=== PATIENT | male | born 1965 | race Caucasian/White ===

== ENCOUNTER 2016-12-15 08:40 | Inpatient (IN) ==
[2016-12-15] MEDS ORDERED: Aspirin 81 MG TAB.CHEW PO STA (08:46)
[2016-12-15] MEDS ORDERED: Nitroglycerin 0.4 MG TAB.SUBL SL PRN (08:49)
[2016-12-15 08:59] LABS: Basophils % 0.4 %; Eosinophils # 0.2 K/mcL (0.0-0.6); Eosinophils % 2.2 %; Hematocrit 34.1 % (37.5-50.1); Hemoglobin 11.3 g/dL (12.9-16.9); Immature Granulocytes % 0.3 % (0-4); Lymphocytes # 1.5 K/mcL (0.6-4.6); Lymphocytes % 19.9 %; Mean Corpuscular HGB Conc 33.1 g/dL (31.6-35.5); Mean Corpuscular Hemoglobin 30.6 pg (28.0-33.3); Mean Corpuscular Volume 92.4 fL (83.0-100.0); Mean Platelet Volume 9.8 fL (9.4-12.4); Monocytes # 0.7 K/mcL (0.0-1.3); Monocytes % 8.6 %; Neutrophils # 5.2 K/mcL (1.6-8.9); Platelet Count 171 K/mcL (140-400); Red Blood Count 3.69 M/mcL (4.19-5.50); Red Cell Distribution Width 13.2 % (11.5-14.5); Segmented Neutrophils % 68.6 %
[2016-12-15 09:05] LABS: INR 1.2; Prothrombin Time 12.6 Seconds (9.4-12.1)
[2016-12-15 09:08] LABS: Activated Partial Thrombo Time 32.3 Seconds (26.0-36.0)
[2016-12-15 09:12] LABS: Calcium 9.4 mg/dL (8.6-10.8); Potassium 4.5 mEq/L (3.5-4.5)
--- NOTE | 2016-12-15 09:17 | Emergency Department Note ---
Disposition Clinical Impression: Chest pain Qualifiers: Chest pain type: unspecified Qualified Code(s): R07.9 - Chest pain, unspecified Disposition: Admitted As Inpatient Condition: Good Referrals: Estrada Mueller MD [Primary Care Provider] - Forms: ED Satisfaction Letter Time of Disposition: 10:03 Chest Pain HPI - General Chief Complaint: ED Chest Pain Stated Complaint: Chest Pain Time Seen by Provider: 12/15/16 08:42 Source: patient Mode of arrival: ambulatory Limitations: no limitations Vital Signs Reviewed: Yes Nursing Notes Reviewed: Yes - History of Present Illness HPI Narrative: Patient is a 51-year-old male with past medical history of previous cardiac stenting, previous ID, hypertension, ESRD. He presents today due to abnormal EKG and chest pain prior to stress test that was scheduled today. Patient states that he has had chronic chest pain on and off. Today, he woke up with chest pain is left-sided, described as a tightness, he is unable to rate it on a scale 1-10 but states that it feels like a dull toothache. Does not worsen with exertion. Denies any shortness of breath, nausea, vomiting, fevers, diarrhea, abdominal pain, urinary symptoms. He has not taken any nitroglycerin or aspirin today. Severity scale (1-10): 0 - Related Data Home Medications Medication Instructions Recorded Confirmed Amlodipine Besylate 10 mg PO DAILY 12/15/16 12/15/16 Aspirin 81 mg PO DAILY 12/15/16 12/15/16 Carvedilol [Coreg] 25 mg PO BID 12/15/16 12/15/16 Clopidogrel [Plavix] 75 mg PO DAILY 12/15/16 12/15/16 Cyclobenzaprine [Flexeril] 10 mg PO HS 12/15/16 12/15/16 Lisinopril [Zestril] 40 mg PO DAILY 12/15/16 12/15/16 Nitroglycerin [Nitrostat] 0.4 mg SL AD PRN 12/15/16 12/15/16 Omeprazole [PriLOSEC] 20 mg PO DAILY 12/15/16 12/15/16 Ranitidine HCl [Zantac] 300 mg PO HS 12/15/16 12/15/16 Sevelamer [Renvela] 800 mg PO TIDWM 12/15/16 12/15/16 Simvastatin [Zocor] 20 mg PO HS 12/15/16 12/15/16 Tramadol HCl [Ultram] 50 mg PO Q6H PRN 12/15/16 12/15/16 Allergies Allergy/AdvReac Type Severity Reaction Status Date / Time No Known Allergies Allergy Verified 10/18/16 08:49 Constitutional: Denies: fever Cardiovascular: Reports: chest pain. Denies: palpitations Respiratory: Denies: cough, dyspnea, wheezes Gastrointestinal: Denies: abdominal pain, nausea, vomiting, diarrhea Musculoskeletal: Denies: back pain Integumentary: Denies: rash Chest Pain PMH - Past Medical History Medical history: Reports: DVT, GERD, hypertension, myocardial infarction, renal disease, other Psychiatric history: Reports: no psych history - Social History Smoking Status: Current every day smoker Alcohol use: Reports: none Drug use: Reports: none Physical Exam - General Limitations: no limitations General appearance: alert, in no apparent distress - Head Head exam: atraumatic, normocephalic, normal inspection - Eye Eye exam: Present: normal appearance, PERRL, EOMI - ENT ENT exam: normal exam, normal oropharynx, mucous membranes moist - Neck Neck exam: Present: normal inspection, full ROM, trachea midline - Chest Chest inspection: Present: normal inspection, symmetric chest wall rise - Respiratory Respiratory exam: Present: normal lung sounds bilaterally. Absent: respiratory distress, wheezes, stridor - Cardiovascular Cardiovascular exam: Present: regular rate, normal rhythm, normal heart sounds - Abdominal Exam Abdominal exam: Present: soft, Non-Tender. Absent: tenderness, distention, guarding, rebound, rigidity - Extremities Exam Extremities exam: Present: normal inspection, full ROM. Absent: tenderness, pedal edema - Neurological Exam Neurological exam: Present: alert, oriented X3 - Psychiatric Psychiatric exam: Present: normal affect, normal mood - Skin Skin exam: Present: warm, dry, intact, normal color Course Course Narrative: Patient BP was 192/90. The rest of his vitals were within normal limits. EKG shows sinus rhythm with hyperacute T waves. , mild elevation in V1, V2 present on old EKG in 08/02/2013. Lungs clear to auscultation. Heart regular rate and rhythm. Abdominal exam benign. CBC shows normal white blood cell count. Mildly anemic. Creatinine consistent with end-stage renal disease. Troponin 0.08. Patient is having active chest pain. We will start nitro drip and then admit to hospitalist. Chest x-ray shows mild pulmonary venous congestion but no overt edema. No other acute cardio pulmonary processes. 09:37 and spoke with the patient about admission. He was agreeable to admission. was concerned about starting heparin. We discussed that this was standard treatment for ACS. She is concerned about bleeding. This was discussed at length and patient was agreeable with starting heparin at this time. Dr. Gar consulted and was agreeable with starting him on heparin. Chest X-Ray 12/15/16 08:45 IMPRESSION: Pulmonary venous congestion without overt pulmonary edema. No acute abnormality of the chest otherwise. D/ / Flakito Keating MD / Flakito Keating MD Interpreting Provider: Flakito Keating MD Vital Signs Temperature 98.9 F 12/15/16 08:41 Pulse Rate 71 12/15/16 08:41 Respiratory Rate 16 12/15/16 08:41 Blood Pressure 192/99 12/15/16 08:41 O2 Sat by Pulse Oximetry 97 12/15/16 08:41 Temperature 98.9 F 12/15/16 08:41 Pulse Rate 68 12/15/16 10:14 Respiratory Rate 18 12/15/16 10:14 Blood Pressure 147/85 12/15/16 10:14 O2 Sat by Pulse Oximetry 98 12/15/16 10:14 Oxygen Delivery Oxygen Delivery Room Air Chest Pain - [facility] Narrative Medical decision making narrative: Patient BP was 192/90. The rest of his vitals were within normal limits. EKG shows sinus rhythm with hyperacute T waves. , mild elevation in V1, V2 present on old EKG in 08/02/2013. Lungs clear to auscultation. Heart regular rate and rhythm. Abdominal exam benign. CBC shows normal white blood cell count. Mildly anemic. Creatinine consistent with end-stage renal disease. Troponin 0.08. Patient is having active chest pain. We will start nitro drip and then admit to hospitalist. Chest x-ray shows mild pulmonary venous congestion but no overt edema. No other acute cardio pulmonary processes. 09:37 and spoke with the patient about admission. He was agreeable to admission. was concerned about starting heparin. We discussed that this was standard treatment for ACS. She is concerned about bleeding. This was discussed at length and patient was agreeable with starting heparin at this time. Dr. Gar consulted and was agreeable with starting him on heparin. - Medical Records Medical records reviewed: Yes I reviewed the patient's medical records. - Lab Data Lab results reviewed: Yes I reviewed the patient's lab results. Result diagrams: 12/15/16 08:52 12/15/16 08:52 Lab Results 12/15/16 12/15/16 12/15/16 Range/Units 08:52 08:52 08:52 WBC 7.6 (4.3-11.1) K/mcL RBC 3.69 L (4.19-5.50) M/mcL Hgb 11.3 L (12.9-16.9) g/dL Hct 34.1 L (37.5-50.1) % MCV 92.4 (83.0-100.0) fL MCH 30.6 (28.0-33.3) pg MCHC 33.1 (31.6-35.5) g/dL RDW 13.2 (11.5-14.5) % Plt Count 171 (140-400) K/mcL MPV 9.8 (9.4-12.4) fL Immature Gran % 0.3 (0-4) % Seg Neutrophils % 68.6 % Lymphocytes % 19.9 % Monocytes % 8.6 % Eosinophils % 2.2 % Basophils % 0.4 % Neutrophils # 5.2 (1.6-8.9) K/mcL Lymphocytes # 1.5 (0.6-4.6) K/mcL Monocytes # 0.7 (0.0-1.3) K/mcL Eosinophils # 0.2 (0.0-0.6) K/mcL Basophils # 0.0 (0.0-0.2) K/mcL PT 12.6 H (9.4-12.1) Seconds INR 1.2 APTT 32.3 (26.0-36.0) Seconds Sodium 138 (136-145) mEq/L Potassium 4.5 (3.5-4.5) mEq/L Chloride 103 (98-109) mEq/L Carbon Dioxide 22 (19-29) mEq/L BUN 27 H (8-26) mg/dL Creatinine 5.44 H (0.72-1.25) mg/dL Est GFR ( Amer) 13 L (> 60) Est GFR (Non-Af Amer) 11 L (> 60) BUN/Creatinine Ratio 5 L (6-26) Glucose 84 (70-99) mg/dL Calculated Osmolality 290 (280-300) Calcium 9.4 (8.6-10.8) mg/dL Troponin I (0-0.03) ng/mL 12/15/16 Range/Units 08:52 WBC (4.3-11.1) K/mcL RBC (4.19-5.50) M/mcL Hgb (12.9-16.9) g/dL Hct (37.5-50.1) % MCV (83.0-100.0) fL MCH (28.0-33.3) pg MCHC (31.6-35.5) g/dL RDW (11.5-14.5) % Plt Count (140-400) K/mcL MPV (9.4-12.4) fL Immature Gran % (0-4) % Seg Neutrophils % % Lymphocytes % % Monocytes % % Eosinophils % % Basophils % % Neutrophils # (1.6-8.9) K/mcL Lymphocytes # (0.6-4.6) K/mcL Monocytes # (0.0-1.3) K/mcL Eosinophils # (0.0-0.6) K/mcL Basophils # (0.0-0.2) K/mcL PT (9.4-12.1) Seconds INR APTT (26.0-36.0) Seconds Sodium (136-145) mEq/L Potassium (3.5-4.5) mEq/L Chloride (98-109) mEq/L Carbon Dioxide (19-29) mEq/L BUN (8-26) mg/dL Creatinine (0.72-1.25) mg/dL Est GFR ( Amer) (> 60) Est GFR (Non-Af Amer) (> 60) BUN/Creatinine Ratio (6-26) Glucose (70-99) mg/dL Calculated Osmolality (280-300) Calcium (8.6-10.8) mg/dL Troponin I 0.08 H* (0-0.03) ng/mL - Radiology Data Radiology results reviewed: Yes I reviewed the patient's radiology results. Chest X-Ray 12/15/16 08:45 IMPRESSION: Pulmonary venous congestion without overt pulmonary edema. No acute abnormality of the chest otherwise. D/ / Flakito Keating MD / Flakito Keating MD Interpreting Provider: lFakito Keating MD - EKG Data EKG attestation: Yes I reviewed and interpreted this EKG. EKG results narrative: EKG shows normal sinus rhythm. Rate 76. DC interval 157. QRS 82. QTC 413. Normal axis. Mild elevation in V1, V2 that is chronic for the patient from previous EKG on 08/02/2013. Heart Score - Score History: Moderately Suspicious EKG: Normal Age: 45-65 Risk Factors: Equal/Greater than 3 risk factor or history of atherosclerotic disease Troponin: Less than normal limit HEART Score Total: 4 S.B.A.R. - S.B.A.R. Situation: Demographics, MOA Background: Presenting Complaint, Relevant PMH, Meds, & Allergies Assessment: Vital Signs, Course and respsone to treatment, Exam Concerns, Patient/Family Expectation, Pertinant Lab Results, Outstanding Labs Recommendation: Barrier(s) to disposition, Recommendation based on pending studies, treatments, or consults S.B.A.R. Report Given to: Dr. Elsie Soto Repor Time: 10:03 Attestation Statement - Attestation Attestation: I examined this patient and my medical decision-making was reviewed with the [employer] MACHINE OPERATOR/PA/Advanced Practice Nurse/Resident Physician. I agree with the documented findings, disposition and treatment plan as described except to the extent set forth below. Patient emergency department with chest pain. He has been having intermittent episodes as an outpatient. He went today for a stress test and they sent him to the emergency department. On examination he is comfortable in no distress. Heart regular rate and rhythm. Plan. Patient with new lateral ST depressions and T-wave inversions. Troponin is positive, but patient is on dialysis. Starting heparin and will admit. 30 minutes of critical care exclusive of separately billable procedures.
[2016-12-15] MEDS ORDERED: *HR* Heparin 5,000 UNIT/ML VIAL IVP ONE (09:24)
[2016-12-15] MEDS ORDERED: *HR* Heparin 5,000 UNIT/ML VIAL IVP PRN ×2 (09:24)
[2016-12-15] MEDS ORDERED: Heparin 25,000 UNIT/500 ML D5W 25,000 UNIT/500 ML MLS IVC SCH (09:30)
[2016-12-15] MEDS ORDERED: Acetaminophen 325 MG TABLET PO PRN (10:31)
[2016-12-15] MEDS ORDERED: *HR* HYDROcodone/Acet 5/325 mg TABLET PO PRN (10:31)
[2016-12-15] MEDS ORDERED: Ondansetron 4 MG/2 ML VIAL IVP PRN (10:31)
[2016-12-15] MEDS ORDERED: Naloxone 0.4 MG/ML INJ IVP PRN (10:31)
[2016-12-15] MEDS ORDERED: *HR* HYDROmorphone (PF) 1 MG/ML SYRINGE IVP PRN (10:31)
[2016-12-15] MEDS ORDERED: Lisinopril 20 MG TABLET PO ONE (11:30)
--- NOTE | 2016-12-15 11:33 | Internal Med History&Physical ---
Date of Encounter: 12/15/16 Time of Encounter: 11:27 Assessment and Plan (1) NSTEMI (non-ST elevated myocardial infarction) Current visit: Yes Status: Acute Continue heparin drip ECHO done 12/08/2016 shows LVEF 50%, severe LV diastolic dysfunction severely dilated LA, Pulm HTN, Moderate-Severe Continue ACEI, BB, ASA, Plavix Follow cardiology consult/recs Nitro prn (2) CAD (coronary artery disease) Current visit: Yes Status: Chronic As above Qualifiers: Coronary Disease-Associated Artery/Lesion type: [place] artery [place] vs. transplanted heart: [place] heart Associated angina: with unstable angina Qualified Code(s): I25.110 - Atherosclerotic heart disease of [place] coronary artery with unstable angina pectoris (3) ESRD (end stage renal disease) Current visit: Yes Status: Chronic Electrolytes acceptable K is normal Consult renal for routine HD MWF (4) HTN (hypertension) Current visit: Yes Status: Chronic Uncontrolled Restart home meds , and titrate prn Qualifiers: Hypertension type: essential hypertension Qualified Code(s): I10 - Essential (primary) hypertension (5) Aortic stenosis Current visit: Yes Status: Chronic Moderate-Severe per ECHO done 11/2016 Patient with known CAD and NSTEMI Cardiology is on board, will follow recommendations Qualifiers: Cardiac valve disease etiology: nonrheumatic Qualified Code(s): I35.0 - Nonrheumatic aortic (valve) stenosis (6) Tobacco dependence Current visit: Yes Status: Acute Tobacco cessation encouraged Patient requesting NRT , ordered Internal Medicine - H&P: HPI Chief complaint: Chest pain, uncontrolled BP, abnormal EKG Admitted From: Home Plans for Post Hospital Care: Home History of present illness: Mr. Bray is a 51 year old male Seen at bedside with his spouse present He reports a PMH of HTN, ESRD, CAD s/p [place] with stents in 2012, Stable angina, Tobacco abuse Patient states that in the past week he has been having chest pain worse with exertion and sometimes at rest. He remembers one time he had very severe chest pain, not relieved by his nitro and when he checked his BP, it was >200 SBP. He has been having annual ECHOcardiograms and Stress tests in preparation for his kidney transplant since he is on the transplant list He has tried thrice to obtain stress test since Monday and was turned back for uncontrolled blood pressure Today he was referred to the ED from stress test due to abnormal EKG with new findings At time of review, he denies ongoing chest pain, dizziness, palpitations, diaphoresis or shortness of breath he has no abdominal , or neurologic complains he is an active smoker, with ~30pack year, smokes 1 PPD On arrival to the ED< his vital signs showed BP 192/99, work up revealed normal CBC and troponin 0.08 (no previous values to compare with. ). EKG showed <1mm St depression in inferior leads, Tall T waves in Leads V2-V4 and new TWI in V5 and V6. CXR with pulmonary vascular congestion without overt pulmonary edema he is admitted to medicine for NSTEMI after due consultation with cardiology Past Med Surg Social Fam HX - Past Medical History Medical history: DVT, GERD, hypertension, myocardial infarction, renal disease, other Psychiatric history: no psych history - Social History Smoking Status: Current every day smoker Smokeless Tobacco Status: No Alcohol use: none Drug use: none Internal Medicine - H&P: Meds Amlodipine Besylate 10 mg PO DAILY 12/15/16 [History] Aspirin 81 mg PO DAILY 12/15/16 [History] Carvedilol [Coreg] 25 mg PO BID 12/15/16 [History] Clopidogrel [Plavix] 75 mg PO DAILY 12/15/16 [History] Cyclobenzaprine [Flexeril] 10 mg PO HS 12/15/16 [History] Lisinopril [Zestril] 40 mg PO DAILY 12/15/16 [History] Nitroglycerin [Nitrostat] 0.4 mg SL AD PRN 12/15/16 [History] Omeprazole [PriLOSEC] 20 mg PO DAILY 12/15/16 [History] Ranitidine HCl [Zantac] 300 mg PO HS 12/15/16 [History] Sevelamer [Renvela] 800 mg PO TIDWM 12/15/16 [History] Simvastatin [Zocor] 20 mg PO HS 12/15/16 [History] Tramadol HCl [Ultram] 50 mg PO Q6H PRN 12/15/16 [History] Allergies No Known Allergies Allergy (Verified 10/18/16 08:49) All Systems PM: A 10-system review of systems was performed and is negative for pertinent findings except as documented above in the HPI. - Constitutional Constitutional: no chills, no fever(s), no night sweats - EENT Eyes: no change in vision, no discharge, no pain, no photophobia Ears: no ear discharge, no ear pain, no tinnitus Nose, mouth and throat: no dysphagia, no nasal discharge, no neck pain, no sore throat - Cardiovascular Cardiovascular ROS IM: as per HPI - Respiratory Respiratory: as per HPI - Gastrointestinal Gastrointestinal: as per HPI - Genitourinary Genitourinary ROS male: as per HPI - Musculoskeletal Musculoskeletal ROS IM: as per HPI - Integumentary Integumentary IM: as per HPI - Neurological Neurological ROS: as per HPI - Psychiatric Psychiatric: as per HPI - Hematologic/Lymphatic Hematologic/Lymphatic: no easy bruising - Constitutional Vitals: Temp Pulse Resp BP Pulse Ox 98.9 F 75 18 140/86 95 12/15/16 08:41 12/15/16 11:14 12/15/16 11:14 12/15/16 11:14 12/15/16 11:14 General appearance: Present: A&O X 3, pleasant, no acute distress - Head Head exam: Present: atraumatic, normocephalic - Eye Eye exam: Present: PERRL, conjuntiva pink, sclera anicteric Pupils: Present: PERRL - Neck Neck exam general surgery: Present: supple, trachea midline. Absent: lymphadenopathy - Respiratory Respiratory exam: Present: CTAB. Absent: accessory muscle use, rales, rhonchi, wheezes - Cardiovascular Cardiovascular exam: Present: RRR, +S1, +S2, systolic murmur ( murmur). Absent: diastolic murmur, gallop, rubs - GI/Abdominal GI/Abdominal exam: Present: normal bowel sounds, soft, no peritoneal signs. Absent: distended, tenderness - Extremities Exam Extremities exam: Present: warm, radial pulses palpable and symetrical. Absent : calf tenderness, cyanotic, pedal edema Additional comments: Left forearm AVF thrill - Neurological Exam Neurological exam: Present: alert, CN II-XII intact, oriented X3, no focal deficits. Absent: pronater drift, facial droop, speech deficit - Skin Skin exam: Present: dry, intact Internal Med - H&P Results - Labs CBC & Chem 7: 12/15/16 08:52 12/15/16 08:52 Labs: Short CBC 12/15/16 Range/Units 08:52 WBC 7.6 (4.3-11.1) K/mcL Hgb 11.3 L (12.9-16.9) g/dL Hct 34.1 L (37.5-50.1) % Plt Count 171 (140-400) K/mcL Neutrophils # 5.2 (1.6-8.9) K/mcL BMP 12/15/16 08:52 Sodium 138 Potassium 4.5 Chloride 103 Carbon Dioxide 22 BUN 27 H Creatinine 5.44 H Glucose 84 Calcium 9.4 Cardiac Enzymes 12/15/16 Range/Units 08:52 Troponin I 0.08 H* (0-0.03) ng/mL - Impressions ITS Impressions Chest X-Ray 12/15/16 08:45 IMPRESSION: Pulmonary venous congestion without overt pulmonary edema. No acute abnormality of the chest otherwise. D/ / Flakito Keating MD / Flakito Keating MD Interpreting Provider: Flakito Keating MD
[2016-12-15] MEDS: amLODIPine 5 MG TABLET PO SCH (11:44)
--- NOTE | 2016-12-15 14:08 | Pre-Sedation Evaluation ---
Pre-sedation evaluation - Pre-sedation checklist Date of procedure: 12/15/16 Procedure: [facility] Recent Vitals: Last Vital Signs Temp 98.9 F 12/15/16 08:41 Pulse 86 12/15/16 13:33 Resp 17 12/15/16 13:33 BP 168/89 12/15/16 13:33 Pulse Ox 92 12/15/16 13:33 H&P (including ROS) documented in medical record: Yes Previous reaction to sedatives/anesthetics: No Dietary Status: NPO after Midnight Airway Assessment: Patient can open mouth completely, TMJ function normal Dentition: No loose teeth or bridges ASA Classification *see protocol: CLASS II-Mild systemic disease Plan of Care: Pt appropriate candidate for procedure/moderate/conscious sedation , Risks/benefits of procedure/sedation discussed w/ patient/family
--- NOTE | 2016-12-15 14:14 | Cardiology Consult Note ---
Date of Encounter: 12/15/16 Time of Encounter: 14:08 Assessment and Plan (1) NSTEMI (non-ST elevated myocardial infarction) Current Visit: Yes Status: Acute Initial troponin 0.08. Trend for total of 3. This is also in setting of ESRD on dialysis with creatinine 5.44 and hypertensive urgency with BP as high as 192/ 99. NSTEMI vs. Demand ischemia. EKG changes noted, specifically in inferior leads--likely secondary to LVH. Current chest pain 2-11/18. Typical symptoms of chest pain worsening with exertion, improving with rest and nitro. Recent echo 11/2016 EF 50% with hypokinesis of basal-mid inferolateral wall. Severe diastolic dysfunction, severely dilated left atrium, moderate-severe . Recommend [facility] for further evaluation. R/B/A discussed. Pt agrees. [facility] today. Currently on heparin gtt, ASA, Plavix, Statin, BB, HAI-I. Continue to follow. (2) Aortic stenosis Current Visit: Yes Status: Chronic Moderate-Severe per echo 11/2016. Moderate by transvalvular gradients (PV 3.49 m/sec, MG 27mmHg), severe by SARAH 0.85 cm2. Will continue to monitor. Possible SARAH as outpt to further evaluate. Qualifiers: Cardiac valve disease etiology: nonrheumatic Qualified Code(s): I35.0 - Nonrheumatic aortic (valve) stenosis (3) CAD (coronary artery disease) Current Visit: Yes Status: Chronic Hx of PCI to mid LAD and prox circ in 2012. ASA, Plavix, Statin, BB, HAI-I. Qualifiers: Coronary Disease-Associated Artery/Lesion type: [place] artery [place] vs. transplanted heart: [place] heart Associated angina: with unstable angina Qualified Code(s): I25.110 - Atherosclerotic heart disease of [place] coronary artery with unstable angina pectoris (4) ESRD (end stage renal disease) Current Visit: Yes Status: Chronic HD on M, W, F. Nephrology consulted. (5) HTN (hypertension) Current Visit: Yes Status: Chronic Uncontrolled, 197/99 on presentation, currently 168/89. Restarted home meds, adjust as necessary. Qualifiers: Hypertension type: essential hypertension Qualified Code(s): I10 - Essential (primary) hypertension (6) Tobacco dependence Current Visit: Yes Status: Acute Tobacco cessation encouraged. Reports smoking 1 PPD, which is reduced compared to prior. Nicotine patches while inpt. Discussion w patient/family: The assessment and plan as outlined above was discussed with the patient and/or family members who expressed understanding and agreement. All questions were answered. Thank you for involving us in the care of your patient. Please call with any questions. I will discuss all the above with Dr. Gar and make changes as necessary. History of Present Illness Consult date: 12/15/16 Requesting physician: Shay Zimmerman Consult reason: NSTEMI Chief complaint: chest pain History of present illness: Mr. Bray is a 51 year old male with PMH of HTN, ESRD on dialysis, CAD s/p CA and PCI to mid LAD and prox circ in 2012, tobacco abuse that presented today to have outpt stress test ordered by PCP. Stress test was cancelled due to EKG changes and active chest pain. In ED troponin found to be 0.08, but in setting of ESRD and hypertensive urgency. Pt reports he has had intermittent chest pain since PCI in 2012, but recently the pain has been worsening and becoming more frequent. It is midsternal and radiates to his neck and shoulder. Worse with activity, improves with rest and nitro but sometimes still does not totally relieve it. Currently chest pain is rated 2-3/10. Reports dyspnea. Denies nausea , vomiting, or diaphoresis. Recent echo 11/2016 EF 50%--hypokinesis of basal-mid inferolateral wall, severe diastolic dysfunction, severely dilated left atrium, severely calcified AV leaflets, moderate-severe . Moderate by transvalvular gradients (PV 3.49 m/sec, MG 27mmHg), severe by SARAH 0.85cm2. Past Med Surg Social Fam HX - Past Medical History Medical history: coronary artery disease, DVT, GERD, hypertension, myocardial infarction, renal disease, valvular heart disease, other Psychiatric history: no psych history - Past Surgical History Surgical History: angioplasty/stent - Social History Smoking Status: Current every day smoker Smokeless Tobacco Status: No Alcohol use: none Drug use: none Medications and Allergies Amlodipine Besylate 10 mg PO DAILY 12/15/16 [History] Aspirin 81 mg PO DAILY 12/15/16 [History] Carvedilol [Coreg] 25 mg PO BID 12/15/16 [History] Clopidogrel [Plavix] 75 mg PO DAILY 12/15/16 [History] Cyclobenzaprine [Flexeril] 10 mg PO HS 12/15/16 [History] Lisinopril [Zestril] 40 mg PO DAILY 12/15/16 [History] Nitroglycerin [Nitrostat] 0.4 mg SL AD PRN 12/15/16 [History] Omeprazole [PriLOSEC] 20 mg PO DAILY 12/15/16 [History] Ranitidine HCl [Zantac] 300 mg PO HS 12/15/16 [History] Sevelamer [Renvela] 800 mg PO TIDWM 12/15/16 [History] Simvastatin [Zocor] 20 mg PO HS 12/15/16 [History] Tramadol HCl [Ultram] 50 mg PO Q6H PRN 12/15/16 [History] Allergies No Known Allergies Allergy (Verified 10/18/16 08:49) All Systems Review: A 10-system review of systems was performed and is negative for pertinent findings except as documented above in the HPI. - Cardiovascular Cardiovascular: as per HPI, chest pain at rest, chest pain with exertion, dyspnea on exertion, radiating jaw, neck or arm pain - Respiratory Respiratory: dyspnea Physical Examination Vital Signs, Last 4 Hours Pulse Resp BP Pulse Ox 12/15/16 13:33 86 17 168/89 92 12/15/16 13:09 18 164/86 Vital Signs Temp Pulse Resp BP Pulse Ox 12/15/16 13:33 86 17 168/89 92 12/15/16 13:09 18 164/86 12/15/16 11:48 71 72 171/87 95 12/15/16 11:14 75 18 140/86 95 12/15/16 10:14 68 18 147/85 98 12/15/16 09:25 84 20 178/95 94 12/15/16 08:41 98.9 F 71 16 192/99 97 Intake and Output 12/14/16 12/15/16 12/15/16 23:59 07:59 15:59 Other: Weight 69.853 kg Patient Weight 12/15/16 23:59 Weight 69.853 kg General: Conversant, No Apparent Distress HEENT: Atraumatic, Normocephaly, Mucus Membranes Moist Neck: No JVD, Normal carotid pulses Cardiac: Reg Rate and Rhythm, Normal S1 and S2, Other (BETSY 2/6) Lungs: Other (diminished) Neuro: Alert and responsive, No focal deficits noted Abdomen: Soft, Non-Tender Skin: No rashes noted on visualized skin Musculoskeletal: No Chest Wall Tenderness Extremities: No Clubbing, No Cyanosis, No Edema, Normal Pulses Results 12/15/16 08:52 12/15/16 08:52 Short CBC 12/15/16 Range/Units 08:52 WBC 7.6 (4.3-11.1) K/mcL Hgb 11.3 L (12.9-16.9) g/dL Hct 34.1 L (37.5-50.1) % Plt Count 171 (140-400) K/mcL Neutrophils # 5.2 (1.6-8.9) K/mcL BMP 12/15/16 Range/Units 08:52 Sodium 138 (136-145) mEq/L Potassium 4.5 (3.5-4.5) mEq/L Chloride 103 (98-109) mEq/L Carbon Dioxide 22 (19-29) mEq/L BUN 27 H (8-26) mg/dL Creatinine 5.44 H (0.72-1.25) mg/dL Glucose 84 (70-99) mg/dL Calcium 9.4 (8.6-10.8) mg/dL Cardiac Enzymes 12/15/16 Range/Units 08:52 Troponin I 0.08 H* (0-0.03) ng/mL Impressions Chest X-Ray 12/15/16 08:45 IMPRESSION: Pulmonary venous congestion without overt pulmonary edema. No acute abnormality of the chest otherwise. D/ / Flakito Keating MD / Flakito Keating MD Interpreting Provider: Flakito Keating MD Active Medications Acetaminophen (Tylenol) 650 mg PO Q6HR PRN PRN Reason: Mild Pain (1-3) Stop: 06/16/17 10:32 Acetaminophen/Hydrocodone Bitart ([place] 5-325 Mg) 1 tab PO Q4HR PRN PRN Reason: Moderate Pain (4-6) Stop: 06/16/17 10:32 Amlodipine Besylate (Norvasc) 10 mg PO DAILY A[facility]LDO Stop: 06/16/17 10:46 Last Admin: 04/06/17 11:44 Dose: 10 mg Aspirin (Aspirin) 81 mg PO DAILY [facility] Stop: 06/17/17 09:01 Atorvastatin Calcium (Lipitor) 40 mg PO HS [facility] Stop: 06/16/17 21:01 Carvedilol (Coreg) 25 mg PO BID ARNALDO PRN Reason: Protocol Stop: 06/16/17 21:01 Clopidogrel Bisulfate (Plavix) 75 mg PO DAILY [facility] Stop: 06/17/17 09:01 Cyclobenzaprine HCl (Flexeril) 10 mg PO HS [facility] Stop: 06/16/17 21:01 Famotidine (Pepcid) 20 mg PO HS [facility] Stop: 06/16/17 21:01 Heparin Sodium (Porcine) (Heparin) 4,000 unit IVP Q6HR PRN PRN Reason: SEE COMMENTS Stop: 06/16/17 09:25 Heparin Sodium (Porcine) (Heparin) 2,000 unit IVP Q6H PRN PRN Reason: SEE COMMENTS Stop: 06/16/17 09:25 Hydromorphone HCl (Dilaudid) 0.5 mg IVP Q4HR PRN PRN Reason: Severe Pain (7-10) Stop: 06/16/17 10:32 Heparin Sodium/Dextrose (Heparin 25,000 Unit/500 Ml D5w) 25,000 unit in 500 mls @ 16.765 mls/hr IVC .Q24H ARNALDO; 12 UNIT/KG/HR PRN Reason: Protocol Stop: 06/16/17 09:31 Last Admin: 12/15/16 10:57 Dose: 12 unit/kg/hr, 16.765 mls/hr Lisinopril (Zestril) 40 mg PO DAILY [facility] Stop: 06/17/17 09:01 Naloxone HCl (Narcan) 0.4 mg IVP Q2MIN PRN PRN Reason: Opioid Reversal Stop: 06/16/17 10:32 Nitroglycerin (Nitroglycerin) 0.4 mg SL Q5MIN PRN PRN Reason: Chest Pain Stop: 06/16/17 08:50 Last Admin: 12/15/16 09:21 Dose: 0.4 mg Omeprazole (Prilosec) 20 mg PO DAILY [facility] PRN Reason: Protocol Stop: 06/17/17 09:01 Ondansetron HCl (Zofran) 4 mg IVP Q8HR PRN PRN Reason: Nausea And Vomiting Stop: 06/16/17 10:32 Sevelamer HCl (Renvela) 800 mg PO TIDWM [facility] Stop: 06/16/17 12:01 - Imaging and Cardiology Chest Xray: report reviewed Echo: report reviewed Cardiac cath: report reviewed - EKG Interpretation EKG results cardiology: personally reviewed (SR, LVH with ST-T changes) Consult Discharge Plan - Plan Referrals: Estrada Mueller MD [Primary Care Provider] -
[2016-12-15] MEDS ORDERED: 0.9 % Sodium Chloride 1,000 ML ONE ×2 (15:26→15:38)
[2016-12-15] MEDS ORDERED: Heparin 1,000 UNITS/500 mL NS 500 ML ONE (15:26)
[2016-12-15] MEDS ORDERED: *HR* Heparin 10,000 UNIT/10 ML VIAL ONE (15:26)
[2016-12-15] MEDS ORDERED: Nitroglycerin 1,000 MCG/10 ML VIAL IV ONE (15:26)
[2016-12-15] MEDS ORDERED: Verapamil 5 MG/2 ML VIAL ONE (15:27)
[2016-12-15] MEDS ORDERED: *HR* Midazolam HCl 2 MG/2 ML VIAL ONE ×2 (15:37→16:02)
[2016-12-15] MEDS ORDERED: *HR* FentaNYL (PF) 100 MCG/2 ML VIAL ONE (15:38)
--- NOTE | 2016-12-15 16:03 | Electrocardiograph Report ---
[place] [address] Test Date: 2016-12-15 Pat Name: Connor Bray Department: 105 Room: 2NE29 Gender: M Senior Account Manager: NANO : 1965 Requested By: Minerva See Order Number: [id number] Reading MD: Kurt Stern MD Measurements Intervals [place] Rate: 76 P: 54 SC: 157 QRS: 49 QRSD: 82 T: 154 QT: 382 QTc: 413 Interpretive Statements SINUS RHYTHM LEFT VENTRICULAR HYPERTROPHY AND ST-T CHANGE Electronically Signed On 12-15-2016 16:01:22 EDT by Kurt Stern MD
--- NOTE | 2016-12-15 16:33 | Invasive Diagnostic Lab Proc ---
Name: Connor Bray Date of Study: 12/15/2016 Date: 1965 Ht: 64.2in Medical Record#: [id number] Age: 51 Wt: 153.88lb Gender: Male BSA: 1.75 Order #: [id number] BMI: 26.27 Physicians Procedure Physician: Kurt Setrn MD, [facility] Referring MD: Estrada Mueller MD Referring MD: Staff Name Position Time In Bay Copeland RN Monitor 03:50 PM Chari Mckeon RN Farm Crew Member 03:50 PM Kellee Ross RT (R) Scrub 03:50 PM Indications Indication Abnormal Test - Stress Procedures Performed Procedure L HRT ARTERY/VENTRICLE ANGIO Pre-Procedure Checklist Informed consent is complete signed and on chart. H\\T\\P is on chart. ID band is on and ID verified with patient. Patient NPO for procedure The procedure was described for the patient and questions were answered. Blood Pressure: 168/89 ECG is on chart. Rhythm: NSR Plan of Care Patient will tolerate the procedure without complications. Adequate level of comfort will be maintained. Hemodynamics will remain stable Patient will recover from procedure without complications. Respiratory function will be maintained. Cardiac rhythm will remain stable. Patient temperature will be maintained. Patient and/or family have verbalized understanding of the procedure. Patient Education Chief Complaint/Reason for Test: Cardiac Cath Developmental Category: Adult (18-64 years) Developmentally Appropriate for Age: Yes Learning Barriers: None Education Needs: Procedure Education Method: Verbal Information Taught: Cardiac Cath Educational Evaluation: Able to repeat information Intravenous Access Time IV Size Location DC'd Fluid/Drip Rate Units RN 03:34 PM 20g 1 /" Patent On Arrival Rt Antecubital 0.9NaCl 25 ml/hr Chari Mckeon RN Allergies NKDA Vital Signs Time BP (mmHg) HR (bpm) O2 Sat. RR (bpm) LOC 03:35 PM 168 / 89 86 94 % 16 5 = Fully awake and oriented or at pre-proc level 03:51 PM / % 4 = Oriented but drowsy 03:51 PM / % 4 = Oriented but drowsy 04:13 PM / % 4 = Oriented but drowsy 03:54 PM 185 / 108 96 91 % 0 03:59 PM 165 / 98 89 95 % 27 04:04 PM 166 / 91 84 98 % 18 04:09 PM 157 / 88 87 94 % 04:14 PM 125 / 76 77 94 % 04:19 PM 139 / 78 78 97 % 13 Procedural Medications Time Medication Dose Units Method Given By 03:51 PM Oxygen 2 L/min nasal cannula Chari Mckeon RN 03:57 PM Versed 2 mg Intravenous Linda, Chair AVILES 03:57 PM Fentanyl 50 mcg Intravenous Linda, Chari AVILES 03:57 PM Oxygen 4 L/min nasal cannula [place], Chari AVILES 04:05 PM Versed 1 mg Intravenous [place], Chari AVILES 04:07 PM Versed 1 mg Intravenous Linda, Chari AVILES 04:07 PM Fentanyl 25 mcg Intravenous Linda, Chari AVILES 04:07 PM Lidocaine 2% 1 ml Subcutaneous Kurt Stern MD, FACC 04:08 PM Heparin 1000 units Nitroglycerin 200 mcg Verapamil 2.5 mg Intraarterial Kurt Stern MD, FACC 04:11 PM Oxygen 5 L/min nasal cannula Chari Mckeon RN ASA Classification: CLASS II- Mild systemic disease (i.e. well-controlled diabetes, hypertension, asthma, cigarette smoking) [place] Score Preprocedure Postprocedure Activity 2- Moves 4 extremities sustained head lift Activity Circulation 2- SBP +/= 20 points of pre-anesthetic level Circulation Consciousness 2- Awake and alert oriented x 3 Consciousness O2 Saturation 2- Able to maintain O2 satruation of 92% on room air O2 Saturation Respiratory 2- Able to deep breathe and cough well Respiratory Total Score 10 Total Score Contrast Agent: Isovue Diagnostic Contrast: 67 ml Total Contrast: 67 ml Fluoro Dose: 120 mGy Procedure Log Time Note Enter By 03:32 PM CathStat 03:49 PM Case Start 03:50 PM Pt arrived to labor operator 2 at 15:50 csmith 03:50 PM Bay Copeland RN Position: Monitor Time in: 15:50 csmith 03:50 PM Chari Mckoen RN Position: Farm Crew Member Time in: 15:50 csmith 03:51 PM Kellee Ross RT (R) Position: Scrub Time in: 15:50 csmith 03:51 PM Patient charges- Angio tray pack, Navilyst 3mm J, Pulse Oximetry and ACIST tubing and transducer csmith 03:51 PM Hair removed from procedure site in procedure lab using clippers. Right wrist \\T\\ right grion prepped with Chloraprep by Kellee Ross RT (R), safety strap applied then patient was draped. Skin intact. csmith 03:51 PM Physician arrived 15:51 csmith 03:51 PM ASA Class CLASS II- Mild systemic disease (i.e. well-controlled diabetes, hypertension, asthma, cigarette smoking) csmith 03:51 PM Meet and greet completed csmith 03:51 PM Sign in performed according to hospital policy. csmith 03:51 PM Procedure start 15:51 csmith 03:51 PM Time: 15:51 Patient comfortable and pain free: Yes csmith 03:51 PM Time: 15:51LOC: 4 = Oriented but drowsy csmith 03:51 PM Time: 15:51 Oxygen on at 2 L/min per nasal cannula by Chari Mckeon RN csmith 03:53 PM Vitals capture started with the following parameters, Patient=Adult, Interval=5 min, Initial Fclaweak=089 mmHg, Deflation Rate=5 mmHg, Cuff placed on Left Arm 03:54 PM HR=96 bpm, NRGZ=315/108 mmhg, SpO2=91.0 %, Resp=0 B/min, Comment=nsr 03:57 PM Time: 15:57 Versed 2 mg Intravenous Given by Chari Mckeon RN csmith 03:57 PM Time: 15:57 Fentanyl 50 mcg Intravenous Given by Chari Mckeon RN [facility] 03:57 PM Time: 15:57 Oxygen on at 4 L/min per nasal cannula by Chari Mckeon RN csmith 03:59 PM HR=89 bpm, UNES=541/98 mmhg, SpO2=95.0 %, Resp=27 B/min, Comment=nsr 04:04 PM HR=84 bpm, EFYA=891/91 mmhg, SpO2=98.0 %, Resp=18 B/min, Comment=nsr 04:05 PM Pressure channel 1 zero failed. 04:05 PM Pressure channel 1 zeroed. 04:05 PM Time: 16:05 Versed 1 mg Intravenous [facility] 04:06 PM Time: 15:51LOC: 4 = Oriented but drowsy [facility] 04:07 PM Time: 16:07 Versed 1 mg Intravenous Given [facility] 04:07 PM Time: 16:07 Fentanyl 25 mcg Intravenous Given by Chari Mckeon RN csmith 04:07 PM Time out performed according to hospital policy csmith 04:08 PM Time: 16:07 1 ml Lidocaine 2% to right radial Subcutaneous Given by Kurt Stern MD, [facility] csmith 04:08 PM Access obtained by percutaneous puncture. 5/6Fr 11cm Terumo Glidesheath sheath placed in right Radial artery. [id number] csmith 04:08 PM Time: 16:08 Patient given 1,000 units Heparin, 200 mcg Nitroglycerin, and 2.5 mg Verapamil Intraarterial by Kurt Stern MD, [facility] csmith 04:08 PM 5Fr FR 4 catheter inserted over the wire [facility] csmith 04:08 PM 0.035 260cm Navilyst 3mmJ wire [id number] csmith 04:09 PM HR=87 bpm, MHHT=003/88 mmhg, SpO2=94.0 %, Comment=nsr 04:10 PM RCA angiography performed in multiple views. csmith 04:10 PM Recorded Pressure: Ao, HR=83, Condition=Condition 1 (Aorta) Ao 115/76/95 04:11 PM Time: 16:11 Oxygen on at 5 L/min per nasal cannula by Chari Mckeon RN csmith 04:12 PM 5Fr FL3.5 catheter inserted over the wire [id number] csmith 04:13 PM Recorded Pressure: Ao, HR=81, Condition=Condition 1 (Aorta) Ao 100/45/62 04:13 PM Time: 16:13 Patient comfortable and pain free: Yes csmith 04:13 PM Time: 16:13LOC: 4 = Oriented but drowsy csmith 04:13 PM LCA angiography performed in multiple views. csmith 04:14 PM HR=77 bpm, XBSR=876/76 mmhg, SpO2=94.0 %, Comment=nsr 04:14 PM Lesion found in Mid LAD. Pre Stenosis: 20 Pre THELMA Flow: 3: Complete and Brisk Flow/Perfusion csmith 04:14 PM Lesion found in Proximal RCA. Pre Stenosis: 15 Pre THELMA Flow: 3 Complete and Brisk Flow/Perfusion csmith 04:14 PM Lesion found in Mid RCA. Pre Stenosis: 15 Pre THELMA Flow: 3: Complete and Brisk Flow/Perfusion csmith 04:15 PM Lesion found in Mid Circumflex. Pre Stenosis: 40 Pre THELMA Flow: 3: Complete and Brisk Flow/Perfusion csmith 04:15 PM Coronary Dominance: right csmith 04:15 PM Catheter removed csmith 04:15 PM Catheter selectively placed in left ventricle csmith 04:16 PM Bolus angiogram of left Ventricle complete: 10 ml/sec for a total of 30 mls csmith 04:16 PM Recorded Pressure: LV, HR=78, Condition=Condition 1 (Left Ventricle) LV 173/7/18 04:17 PM Recorded Pressure: LV, Ao, HR=81, Condition=Condition 1 (Left Ventricle) LV 178/39/78, (Aorta) Ao 159/66/102 04:19 PM Procedure completed at 16:19 csmith 04:19 PM HR=78 bpm, GTXS=191/78 mmhg, SpO2=97.0 %, Resp=13 B/min, Comment=nsr 04:20 PM Sign out completed: Radiation Dose 120 mGy Fluoro Time: 2 Isovue 370 - 200ml contrast 67 ml given by Kurt Stern MD, [facility]. Complications: NoneCardiac Rehab Consult needed: NoConfirmed administered medications: Yes csmith 04:20 PM Arterial sheath pulled, Vasc Band closure device used and was Successful S/N. csmith 04:20 PM Post ECG NSR csmith 04:20 PM Post Blood Pressure 139/78 csmith 04:20 PM 16:20 Post Pulses Rt Radial 2+ csmith 04:21 PM Information taught Vasc Band and Cardiac Cath csmith 04:21 PM Education needs Responsibilities of Patient in Care csmith 04:21 PM Learning barriers :None csmith 04:21 PM Education Methods Verbal csmith 04:21 PM Education evaluation Able to repeat information csmith 04:21 PM Site status No bleeding/hematoma - Rt Wrist as reported by Kellee Ross RT (R) at 16:21 csmith 04:21 PM Plavix, Effient or Brilinta given No csmith 04:21 PM Delay to floor No csmith 04:21 PM Family placed in consult room. csmith 04:27 PM Report given to Toya AVILES Pt taken to 2NE Room #29. 16:27 csmith 04:27 PM Patient out of room: 16:27 csmith Complications Complication None Hemodynamics Pressures Site Systolic/A Wave Diastolic/V Wave Mean AO 115 76 95 AO 100 45 62 LV 173 7 18 LV 178 39 78 AO 159 66 102 Post Procedure Information Blood Pressure: 139/78 mmHg Rhythm: NSR Post procedural instructions were given Closure Device Time Device Success/Fail 12/15/2016 4:21:00 PM Mechanical Compression Successful Site Checks Time Location Status Staff Sheath In? Note 04:21 PM Rt Wrist No bleeding/hematoma Kellee Ross RT (R) Pulses Time Site Pre-Procedure Post-Procedure Note 12/15/2016 3:35:00 PM Bilateral DP 2+ 12/15/2016 3:35:00 PM Right radial 2+ fistula to L arm 12/15/2016 3:49:00 PM Bilateral PT 1+ 4:20:00 PM Rt Radial 2+ Updated by Bay Copeland RN on 12/15/2016 4:27:53 PM electronically signed on 12/15/2016 4:28:30 PM with status of Final
[2016-12-15] MEDS: *HR* Heparin 5,000 UNIT/ML VIAL SQ SCH (20:41)
[2016-12-15] MEDS ORDERED: Famotidine 20 MG TABLET PO SCH (21:00)
[2016-12-16] MEDS ORDERED: Nicotine 21 MG PATCH.TD24 TD SCH (02:30)
[2016-12-16 05:07] LABS: Basophils % 0.6 %; Eosinophils # 0.2 K/mcL (0.0-0.6); Eosinophils % 2.9 %; Hematocrit 30.5 % (37.5-50.1); Hemoglobin 10.1 g/dL (12.9-16.9); INR 1.2; Immature Granulocytes % 0.3 % (0-4); Lymphocytes # 1.5 K/mcL (0.6-4.6); Lymphocytes % 23.4 %; Mean Corpuscular HGB Conc 33.1 g/dL (31.6-35.5); Mean Corpuscular Volume 90.5 fL (83.0-100.0); Monocytes # 0.6 K/mcL (0.0-1.3); Platelet Count 172 K/mcL (140-400); Prothrombin Time 12.6 Seconds (9.4-12.1); Red Blood Count 3.37 M/mcL (4.19-5.50); Red Cell Distribution Width 13.3 % (11.5-14.5); Segmented Neutrophils % 63.8 %
[2016-12-16 05:16] LABS: Calcium 8.8 mg/dL (8.6-10.8); Potassium 4.9 mEq/L (3.5-4.5)
[2016-12-16] MEDS: *HR* Heparin 5,000 UNIT/ML VIAL SQ SCH (06:30)
[2016-12-16] MEDS ORDERED: 0.9 % Sodium Chloride 250 ML IVC PRN (07:49)
--- NOTE | 2016-12-16 08:49 | Nephrology Consult Note ---
Date of Encounter: 12/16/16 Time of Encounter: 08:15 Assessment and Plan (1) ESRD (end stage renal disease) Current Visit: Yes Status: Chronic Due for HD today, which has been ordered HD orders here will replicate his chronic orders (see HPI). CAD with CP s/p LHC without needing PCI. No hyperkalemia. HTN/volume status: no significant edema. Will utilize HD for HTN controll Access: excellent LUE AVF Renal diet. Okay for d/c after dialysis from a nephrology perspective (2) Chest pain Current Visit: Yes Status: Acute As per primary/cardio Qualifiers: Chest pain type: unspecified Qualified Code(s): R07.9 - Chest pain, unspecified (3) HTN (hypertension) Current Visit: Yes Status: Chronic See above Qualifiers: Hypertension type: essential hypertension Qualified Code(s): I10 - Essential (primary) hypertension History of Present Illness - Reason for Consult Consult date: 12/15/16 Chronic Kidney Disease, end stage renal disease Requesting physician: Jassi Edwards - Chief Complaint CP - History of Present Illness 51 y/o very pleasant WM gentleman with a pmh of HTN, ESRD on HD M/W/F (primary ophthalmic pathologist is Dr. Grace) and prior CAD s/p PCI who presented with acutely worsening on chronic chest pain. He last completed HD on Monday (two days ago ). He denied CP symptoms that associated with HD. CP is chronic he reported; "ever since his first stent" was placed. CP worsened without overt cause; affecting his neck and slightly improved with Nitro orally, he reported. He was evaluated in the ER with CP; trop was minimally elevated (which is what would be expected in pt's with ESRD), and he underwent a LHC without PCI. He typically dialyzes at [facility], [place]. He said the etiology of his ESRD was viral in origin and not related to DM. Typical HD is 195 min via a Lt forearm AVF. No recent prolonged bleeding or other recent AVF procedures, he said. His listed Target Wt is 69kg, and he typically does not gain fluids but sometimes requires IVF on HD, he said. 2K, EPO about 2000 U and IV iron 50mg thrice weekly , [place] [facility] [place]. Past Med Surg Social Fam HX - Past Medical History Medical history: coronary artery disease, DVT, GERD, hypertension, myocardial infarction, renal disease, valvular heart disease, other Psychiatric history: no psych history - Past Surgical History Surgical History: angioplasty/stent - Social History Smoking Status: Current every day smoker Smokeless Tobacco Status: No Alcohol use: none Drug use: none - Family History Mother Hx Family Cardiac Disorders: Yes Father Hx Family Cardiac Disorders: Yes Hx Family Cancer: Yes Medications and Allergies Amlodipine Besylate 10 mg PO DAILY 12/15/16 [History] Aspirin 81 mg PO DAILY 12/15/16 [History] Carvedilol [Coreg] 25 mg PO BID 12/15/16 [History] Clopidogrel [Plavix] 75 mg PO DAILY 12/15/16 [History] Cyclobenzaprine [Flexeril] 10 mg PO HS 12/15/16 [History] Lisinopril [Zestril] 40 mg PO DAILY 12/15/16 [History] Nitroglycerin [Nitrostat] 0.4 mg SL AD PRN 12/15/16 [History] Omeprazole [PriLOSEC] 20 mg PO DAILY 12/15/16 [History] Ranitidine HCl [Zantac] 300 mg PO HS 12/15/16 [History] Sevelamer [Renvela] 800 mg PO TIDWM 12/15/16 [History] Simvastatin [Zocor] 20 mg PO HS 12/15/16 [History] Tramadol HCl [Ultram] 50 mg PO Q6H PRN 12/15/16 [History] Allergies No Known Allergies Allergy (Verified 10/18/16 08:49) Review of Systems All Systems: reviewed and no additional remarkable complaints except as stated Exam - Vital Signs Vital signs: Initial Vital Signs Temp Pulse Resp BP Pulse Ox 98.9 F 71 16 192/99 97 12/15/16 08:41 12/15/16 08:41 12/15/16 08:41 12/15/16 08:41 12/15/16 08:41 Vital Signs - Last 8 Hours Temp Pulse Resp BP Pulse Ox 12/16/16 07:00 98.2 F 94 17 166/86 97 12/16/16 05:06 98.5 F 81 18 111/66 94 Intake and Output 12/15/16 12/16/16 12/16/16 23:59 07:59 15:59 Other: Weight 68.9 kg Patient Weight 12/16/16 23:59 Weight 68.9 kg - General Appearance General appearance: well-developed, well-nourished, appears started age EENT: ATNC, PERRL, mucous membranes moist Neck: supple Respiratory: clear Cardiology: no edema, regular rate, regular rhythm, normal S1, normal S2 - Dialysis Access Dialysis Vascular Access: Arteriovenous Fistula (Left forearm) thrill: Yes bruit: Yes Gastrointestinal: normoactive bowel sounds, no tenderness, no guarding Integumentary: no rash, warm and dry Neurologic: no focal deficit, no asterixis, alert and oriented x3 Musculoskeletal: no deformities, no erythema, no cyanosis Psychiatric: mood/affect appropriate, cooperative Results - Lab Results 12/16/16 04:46 12/16/16 04:46 Most recent lab results Calcium 8.8 mg/dL (8.6-10.8) 12/16/16 04:46 I reviewed all the medical records here at [facility] and from the [employer] system. I reviewed the above auto generated date, and also reviewed all the labs, meds, vitals, imaging and reports. Consult Discharge Plan - Plan Referrals: Estrada Mueller MD [Primary Care Provider] -
[2016-12-16] MEDS ORDERED: 0.9 % Sodium Chloride 2,000 ML ONE (08:59)
[2016-12-16] MEDS ORDERED: Aspirin 81 MG TAB.CHEW PO SCH (09:00)
[2016-12-16] MEDS ORDERED: Lisinopril 20 MG TABLET PO SCH (09:00)
--- NOTE | 2016-12-16 09:38 | Invasive Diagnostic Lab ---
Name: Connor Bray Date of Study: 12/15/2016 Date: 1965 Ht: 163.0 cm /64.2 in Medical Record#: [id number] Age: 51 Wt: 69.8 kg / 153.88 lb Account/Order#: [id number] Gender: Male BSA: 1.75 Order #: [id number] Fluoro Dose: 120 mGy BMI: 26.27 Procedure Physician: Kurt Stern MD, FACC Referring MD: Estrada Mueller MD Referring MD: Procedures Performed: LEFT HEART CATH Indications: NSTEMI Impressions: There is mild three vessel coronary artery disease. Stent placed from a prior procedure in the Mid LAD is patent. There is moderate aortic stenosis. Recommendations: Optimal medical therapy of patient's disease. Aggressive risk factor modification. History/Risk Factors: CAD DVT LIVE Hypertension Prior MT Procedure Access obtained in the right Radial artery by percutaneous puncture Complications: None Contrast: Isovue 67ml Closure Device: Mechanical Compression Hemodynamics: Pressures Site Systolic/ A Wave Diastolic/ V Wave End Diastolic/ Mean HR AO 115 76 95 83 AO 100 45 62 81 LV 173 7 18 78 LV 178 39 78 87 AO 159 66 102 68 LV Ventriculography Ejection Method: LV Gram Ejection Fraction: 55% Wall Motion: SILVER Anterobasal Normal Anterolateral Normal Apical: Normal Inferoapical Normal Inferobasal Normal Coronary Dominance: right Lesion Findings/Interventions * Left Main Coronary Artery The LMCA is angiographically free of disease. * Left Anterior Descending There is a proximal 20% and 20% stenosis in the Mid LAD. The lesion has a THELMA flow of 3. A stent from a previous procedure is noted and is patent. * Circumflex There is a 40% stenosis in the Mid Circumflex. The lesion has a THELMA flow of 3. * Right Coronary Artery There is a 15% stenosis in the Proximal RCA. There is a 15% stenosis in the Mid RCA. The lesion has a THELMA flow of 3. Additional Findings: Aortic Valve * There is evidence of Moderate stenosis. Updated by Bay Copeland RN on 12/15/2016 4:26:28 PM Kurt Stern MD, FACC electronically signed on 12/16/2016 9:34:37 AM with status of Final
[2016-12-16] MEDS: amLODIPine 5 MG TABLET PO SCH (09:44)
[2016-12-16 10:39] LABS: Hepatitis B Surface Antibody 1.24 mIU/mL; Hepatitis B Surface Antigen Nonreactive (Nonreactive)
--- NOTE | 2016-12-16 14:16 | Discharge Summary ---
Date of Encounter: 12/16/16 Time of Encounter: 14:14 - Discharge Diagnosis (1) NSTEMI (non-ST elevated myocardial infarction) Priority: Primary Status: Acute (2) CAD (coronary artery disease) Priority: Secondary Status: Chronic Qualifiers: Coronary Disease-Associated Artery/Lesion type: cahto artery [place] vs. transplanted heart: cahto heart Associated angina: with unstable angina Qualified Code(s): I25.110 - Atherosclerotic heart disease of cahto coronary artery with unstable angina pectoris (3) ESRD (end stage renal disease) Priority: Secondary Status: Chronic (4) HTN (hypertension) Priority: Secondary Status: Chronic Qualifiers: Hypertension type: essential hypertension Qualified Code(s): I10 - Essential (primary) hypertension (5) Aortic stenosis Priority: Secondary Status: Chronic Qualifiers: Cardiac valve disease etiology: nonrheumatic Qualified Code(s): I35.0 - Nonrheumatic aortic (valve) stenosis - Discharge Medications Home Medications: Amlodipine Besylate 10 mg PO DAILY 12/15/16 [History] Aspirin 81 mg PO DAILY 12/15/16 [History] Carvedilol [Coreg] 25 mg PO BID 12/15/16 [History] Clopidogrel [Plavix] 75 mg PO DAILY 12/15/16 [History] Cyclobenzaprine [Flexeril] 10 mg PO HS 12/15/16 [History] Lisinopril [Zestril] 40 mg PO DAILY 12/15/16 [History] Nitroglycerin [Nitrostat] 0.4 mg SL AD PRN 12/15/16 [History] Omeprazole [PriLOSEC] 20 mg PO DAILY 12/15/16 [History] Ranitidine HCl [Zantac] 300 mg PO HS 12/15/16 [History] Sevelamer [Renvela] 800 mg PO TIDWM 12/15/16 [History] Simvastatin [Zocor] 20 mg PO HS 12/15/16 [History] Tramadol HCl [Ultram] 50 mg PO Q6H PRN 12/15/16 [History] Allergies/Adverse Reactions: Allergies No Known Allergies Allergy (Verified 10/18/16 08:49) Procedures/tests Complete & Pending: Procedures Performed prior 72 hours Category Date Time Status CL Cardiac Catheterization [CL] Routine Supervisor [employer] 12/15/16 14:29 Completed Date of admission: 12/15/16 12:07 Primary care physician: Estrada Mueller MD Consults: 12/16/16 08:00 Consult to Dialysis [CONS] ONCE Discharging clinician: Jassi Edwards - Patient Status Disposition: Home, Self-Care Condition: Good Functional capacity at discharge: independent ambulation Overall status at discharge: patient is progressing back to baseline - Discharge Instructions Follow Up With: Estrada Mueller MD [Primary Care Provider] - - Diet and Activity Activity: increase activity as tolerated Interval History: He reports a PMH of HTN, ESRD, CAD s/p PR with stents in 2012, Stable angina, Tobacco abuse Patient states that in the past week he has been having chest pain worse with exertion and sometimes at rest. He remembers one time he had very severe chest pain, not relieved by his nitro and when he checked his BP, it was >200 SBP. He has been having annual ECHOcardiograms and Stress tests in preparation for his kidney transplant since he is on the transplant list He has tried thrice to obtain stress test since Monday and was turned back for uncontrolled blood pressure Today he was referred to the ED from stress test due to abnormal EKG with new findings Hospital course: he was hospitalized and evaluated by cardiology. Underwent LHC. no new stentsa nd patent previous stents. completed HD recommended home by nephrology and cardiology. follow up with PCP and nephrology. all questions answered. - Time Spent with Patient Total time spent providing and/or coordinating discharge services: - Constitutional Vitals: Temp Pulse Resp BP Pulse Ox 98.2 F 94 16 110/56 97 12/16/16 10:10 12/16/16 07:00 12/16/16 10:10 12/16/16 12:55 12/16/16 08:00 General appearance: Present: A&O X 3, pleasant, no acute distress - Head Head exam: Present: atraumatic, normocephalic - Eye Eye exam: Present: PERRL, conjuntiva pink, sclera anicteric Pupils: Present: PERRL - Neck Neck exam general surgery: Present: supple, trachea midline. Absent: lymphadenopathy - Respiratory Respiratory exam: Present: CTAB. Absent: accessory muscle use, rales, rhonchi, wheezes - Cardiovascular Cardiovascular exam: Present: RRR, +S1, +S2. Absent: diastolic murmur, gallop, rubs, systolic murmur - GI/Abdominal GI/Abdominal exam: Present: normal bowel sounds, soft, no peritoneal signs. Absent: distended, tenderness - Extremities Exam Extremities exam: Present: warm, radial pulses palpable and symetrical. Absent : calf tenderness, cyanotic, pedal edema - Neurological Exam Neurological exam: Present: CN II-XII intact, oriented X3, no focal deficits. Absent: pronater drift, facial droop, speech deficit - Skin Skin exam: Present: dry, intact
[2016-12-16 14:33] VITALS: BP 129/78
== END 2016-12-16 15:10 | disposition home or self-care (01) | DRG 280 ==
LOC: 2NENU 08:40 → EMEROO 08:40 → 2NENU 13:24
PROVIDERS: ADMIT Internal Medicine; ATTEND Internal Medicine

== ENCOUNTER 2017-04-14 15:35 | Observation (INO) ==
[2017-04-14] MEDS ORDERED: Aspirin 81 MG TAB.CHEW PO ONE (15:56)
[2017-04-14] MEDS ORDERED: Calcium Gluconate 1,000 MG in D5% in Water 100 ML IVPB ONE (15:57)
[2017-04-14] MEDS ORDERED: Nitroglycerin 25 MG/250 ML INFUS..BTL IVC SCH (16:00)
[2017-04-14 16:13] LABS: Basophils # 0.1 K/mcL (0.0-0.2); Basophils % 0.7 %; Eosinophils # 0.2 K/mcL (0.0-0.6); Eosinophils % 2.2 %; Hemoglobin 11.1 g/dL (12.9-16.9); Immature Granulocytes % 0.1 % (0-4); Lymphocytes # 1.3 K/mcL (0.6-4.6); Lymphocytes % 15.1 %; Mean Corpuscular HGB Conc 32.6 g/dL (31.6-35.5); Mean Corpuscular Hemoglobin 29.4 pg (28.0-33.3); Mean Corpuscular Volume 90.2 fL (83.0-100.0); Mean Platelet Volume 10.1 fL (9.4-12.4); Monocytes # 0.6 K/mcL (0.0-1.3); Monocytes % 6.9 %; Neutrophils # 6.5 K/mcL (1.6-8.9); Platelet Count 198 K/mcL (140-400); Red Blood Count 3.77 M/mcL (4.19-5.50); Red Cell Distribution Width 12.4 % (11.5-14.5)
[2017-04-14 16:18] LABS: INR 1.1; Prothrombin Time 12.3 Seconds (9.4-12.1)
[2017-04-14 16:20] LABS: Activated Partial Thrombo Time 33.2 Seconds (26.0-36.0)
[2017-04-14 16:25] LABS: Calcium 9.5 mg/dL (8.6-10.8); Potassium 5.6 mEq/L (3.5-4.5)
--- NOTE | 2017-04-14 17:59 | Emergency Department Note ---
Disposition Clinical Impression: ESRD (end stage renal disease), Stable angina Chest pain Qualifiers: Chest pain type: unspecified Qualified Code(s): R07.9 - Chest pain, unspecified Disposition: Admitted As Inpatient Condition: Good Forms: ED Satisfaction Letter Time of Disposition: 18:33 Chest Pain HPI - General Chief Complaint: ED Chest Pain Stated Complaint: Chest Pain Time Seen by Provider: 04/14/17 15:46 Source: patient Mode of arrival: ambulatory Limitations: no limitations Vital Signs Reviewed: Yes Nursing Notes Reviewed: Yes - History of Present Illness HPI Narrative: Patient presents emergency room complaining of chest pain. Similar to his previous heart attack. He is currently on dialysis and did not go to schedule appointment today. He denies any other symptoms or complaints. Patient presents here today with concern chest discomfort that did not respond to his home nitroglycerin. Onset (ago): day(s) Duration: constant Onset: during rest Pain Location: substernal, left chest Severity: moderate Severity scale (1-10): 3 Quality: tightness, heaviness Pain Radiation: none Improves with: nothing Worsens with: exertion, movement Associated symptoms: Denies: nausea, vomiting, diaphoresis Treatments prior to arrival chest pain: aspirin, nitroglycerin - Related Data Home Medications Medication Instructions Recorded Confirmed Amlodipine Besylate 10 mg PO DAILY 12/15/16 04/14/17 Aspirin 81 mg PO DAILY 12/15/16 04/14/17 Carvedilol [Coreg] 25 mg PO BID 12/15/16 04/14/17 Clopidogrel [Plavix] 75 mg PO DAILY 12/15/16 04/14/17 Cyclobenzaprine [Flexeril] 10 mg PO HS 12/15/16 04/14/17 Lisinopril [Zestril] 40 mg PO BID 12/15/16 04/14/17 Nitroglycerin [Nitrostat] 0.4 mg SL AD PRN 12/15/16 04/14/17 Omeprazole [PriLOSEC] 20 mg PO DAILY 12/15/16 04/14/17 Ranitidine HCl [Zantac] 300 mg PO HS 12/15/16 04/14/17 Sevelamer [Renvela] 800 mg PO TIDWM 12/15/16 04/14/17 Tramadol HCl [Ultram] 50 mg PO Q6H PRN 12/15/16 04/14/17 Atorvastatin Calcium [Lipitor] 20 mg PO DAILY 02/27/17 04/14/17 Pentoxifylline [TRENtal] 400 mg PO DAILY 02/27/17 04/14/17 Allergies Allergy/AdvReac Type Severity Reaction Status Date / Time No Known Allergies Allergy Verified 04/12/17 10:51 All systems ED: reviewed and negative except as stated. Review of Systems: As Per HPI Constitutional: Denies: fever, chills Cardiovascular: Reports: chest pain. Denies: palpitations, dyspnea on exertion , orthopnea Respiratory: Denies: cough, dyspnea, wheezes Gastrointestinal: Denies: abdominal pain, nausea, vomiting, diarrhea, constipation Genitourinary: Denies: urgency, dysuria Musculoskeletal: Denies: back pain, neck pain Integumentary: Denies: rash Neurological: Denies: headache Psychiatric: Denies: anxiety Hematological/Lymphatic: Denies: easy bleeding Chest Pain PMH - Past Medical History Medical history: Reports: coronary artery disease, DVT, GERD, hypertension, myocardial infarction, renal disease, valvular heart disease, other Surgical history: Reports: angioplasty/stent Psychiatric history: Reports: no psych history - Social History Smoking Status: Current every day smoker Alcohol use: Reports: none Drug use: Reports: none Physical Exam - General Limitations: no limitations General appearance: alert - Head Head exam: atraumatic, normocephalic, normal inspection - Chest Chest inspection: Present: normal inspection, symmetric chest wall rise - Respiratory Respiratory exam: Present: normal lung sounds bilaterally - Cardiovascular Cardiovascular exam: Present: regular rate, normal rhythm, normal heart sounds - Abdominal Exam Abdominal exam: Present: soft, Non-Tender, normal bowel sounds. Absent: tenderness, distention, guarding, rebound, rigidity, Jung's sign, Rovsing's sign, tenderness at McBurney's Point - Extremities Exam Extremities exam: Present: normal inspection, full ROM, normal capillary refill. Absent: tenderness - Back Exam Back exam: Present: normal inspection, full ROM. Absent: tenderness - Neurological Exam Neurological exam: Present: alert, oriented X3, CN II-XII intact, normal gait - Skin Skin exam: Present: warm, dry, intact, normal color Course Course Narrative: Patient seen and examined the time of arrival. See history of present illness. Very well-appearing 51-year-old male presents emergency room with chest discomfort and pressure. Similar to his previous heart attack. He is a dialysis patient did miss his appointment today. She denies any fevers chills nausea vomiting diarrhea denies headache vision changes at this point. His main complaint is the chest pressure and tightness. He is concerned he is having heart attack. Symptoms started last night and they are very bad he took multiple doses of nitroglycerin with no specific relief. He woke up this morning the symptoms came on progressively got worse again. Patient took nitroglycerin at home and did not have any relief. Physical exam patient is sitting upright in the bed in some moderate distress. He is breathing slightly fast. Heart rate is otherwise normal. Physical exam his oropharynx is patent trach is midline no stridor no trismus. Lungs are clear to auscultation heart is regular. Abdomen is soft nontender nondistended no guarding or rigidity. He scheduled a surgery on his left upper extremity over his fistula sites. There is no signs of infection pulsatile area or bleeding. Patient moves all 4 extremities with purpose. He does appear to have some discomfort and symptoms at this time. Patient on review of systems and evaluation is concerning for possible cardiac source to her symptoms. EKG troponin labs including CBC chemistry will be ordered. Patient's urine will be sent if he creates any. Patient also will have nitroglycerin drip started at this time considering he has had intermittent mild relief of the symptoms with the nitroglycerin at home. Patient does not appear to be focally fluid overloaded. EKG to be collected and will treat for any acute signs of hyperkalemia or uremia if symptoms persist or present themselves. Disposition pending workup and treatment course. Patient is afebrile - Reevaluation(s) Reevaluation #1: Patient on the stable hemoglobin and kidney function is significantly elevated. Potassium is 5.6 no acute intervention needed. Consultation placed to the on- call bath house attendant Dr. Pandey. He is aware the patient will see her in the hospital. No other recommendations at this time. This point patient is otherwise stable. Nitroglycerin drip is relieve the symptoms and pain. He is not acutely short of breath any longer. Bedside ultrasound completed of the heart showing no acute signs of pericardial effusion. Calcifications around one of the valves but nothing else visualized at this time. Patient's symptoms were almost completely resolved symmetrical motion. Admission process to be completed. Consultation placed out of the hospitals. We discussed the vital signs presentation intervention and if they were recommended a heparin drip being started this point. They at this time or not requesting the heparin. We reviewed the presentation symptoms intervention as well as consultation in no other recommendations or issues at this point. Patient stable for Norplant comfortable with the recommendation for admission. We will continue to monitor him in the emergency room to the admission process is completed Time: 18:32 Vital Signs Temperature 97.3 F L 04/14/17 15:50 Pulse Rate 82 04/14/17 15:50 Respiratory Rate 18 04/14/17 15:50 Blood Pressure 165/93 04/14/17 15:50 O2 Sat by Pulse Oximetry 96 04/14/17 15:50 Temperature 97.3 F L 04/14/17 15:50 Pulse Rate 87 04/14/17 17:52 Respiratory Rate 18 04/14/17 17:52 Blood Pressure 139/77 04/14/17 17:52 O2 Sat by Pulse Oximetry 94 04/14/17 17:52 Oxygen Delivery Oxygen Delivery Room Air Chest Pain - MDM Narrative Medical decision making narrative: Chest pain, end-stage renal disease, dialysis patient, - Medical Records Medical records reviewed: Yes I reviewed the patient's medical records. - Lab Data Lab results reviewed: Yes I reviewed the patient's lab results. Result diagrams: 04/14/17 16:04 04/14/17 16:04 Lab Results 04/14/17 04/14/17 04/14/17 Range/Units 16:04 16:04 16:04 WBC 8.6 D (4.3-11.1) K/mcL RBC 3.77 L (4.19-5.50) M/mcL Hgb 11.1 L (12.9-16.9) g/dL Hct 34.0 L (37.5-50.1) % MCV 90.2 (83.0-100.0) fL MCH 29.4 (28.0-33.3) pg MCHC 32.6 (31.6-35.5) g/dL RDW 12.4 (11.5-14.5) % Plt Count 198 (140-400) K/mcL MPV 10.1 (9.4-12.4) fL Immature Gran % 0.1 (0-4) % Seg Neutrophils % 75.0 % Lymphocytes % 15.1 % Monocytes % 6.9 % Eosinophils % 2.2 % Basophils % 0.7 % Neutrophils # 6.5 (1.6-8.9) K/mcL Lymphocytes # 1.3 (0.6-4.6) K/mcL Monocytes # 0.6 (0.0-1.3) K/mcL Eosinophils # 0.2 (0.0-0.6) K/mcL Basophils # 0.1 (0.0-0.2) K/mcL PT 12.3 H (9.4-12.1) Seconds INR 1.1 APTT 33.2 (26.0-36.0) Seconds Sodium (136-145) mEq/L Potassium (3.5-4.5) mEq/L Chloride (98-109) mEq/L Carbon Dioxide (19-29) mEq/L BUN (8-26) mg/dL Creatinine (0.72-1.25) mg/dL Est GFR ( Amer) (> 60) Est GFR (Non-Af Amer) (> 60) BUN/Creatinine Ratio (6-26) Glucose (70-99) mg/dL Calculated Osmolality (280-300) Calcium (8.6-10.8) mg/dL Troponin I (0-0.03) ng/mL B-Natriuretic Peptide 1576 H (0-100) pg/mL 04/14/17 04/14/17 Range/Units 16:04 16:04 WBC (4.3-11.1) K/mcL RBC (4.19-5.50) M/mcL Hgb (12.9-16.9) g/dL Hct (37.5-50.1) % MCV (83.0-100.0) fL MCH (28.0-33.3) pg MCHC (31.6-35.5) g/dL RDW (11.5-14.5) % Plt Count (140-400) K/mcL MPV (9.4-12.4) fL Immature Gran % (0-4) % Seg Neutrophils % % Lymphocytes % % Monocytes % % Eosinophils % % Basophils % % Neutrophils # (1.6-8.9) K/mcL Lymphocytes # (0.6-4.6) K/mcL Monocytes # (0.0-1.3) K/mcL Eosinophils # (0.0-0.6) K/mcL Basophils # (0.0-0.2) K/mcL PT (9.4-12.1) Seconds INR APTT (26.0-36.0) Seconds Sodium 135 L (136-145) mEq/L Potassium 5.6 H D (3.5-4.5) mEq/L Chloride 105 (98-109) mEq/L Carbon Dioxide 21 (19-29) mEq/L BUN 43 H D (8-26) mg/dL Creatinine 7.87 H D (0.72-1.25) mg/dL Est GFR ( Amer) 9 L (> 60) Est GFR (Non-Af Amer) 7 L (> 60) BUN/Creatinine Ratio 5 L (6-26) Glucose 115 H (70-99) mg/dL Calculated Osmolality 292 (280-300) Calcium 9.5 (8.6-10.8) mg/dL Troponin I 0.04 H* (0-0.03) ng/mL B-Natriuretic Peptide (0-100) pg/mL - Radiology Data Radiology results reviewed: Yes I reviewed the patient's radiology results. Chest x-ray stable showing no acute signs widening of the mediastinum - EKG Data EKG attestation: Yes I reviewed and interpreted this EKG. EKG shows normal: sinus rhythm, axis, intervals, QRS complexes, ST-T waves Rate: normal Rhythm: NSR Voltage: c/w LVH When compared to previous EKG there are: no significant changes Interpretation: no acute changes, unchanged when compared to prior tracing (date ) Heart Score - Score History: Moderately Suspicious EKG: Non Specific repolarisation Disturbance Age: 45-65 Risk Factors: Equal/Greater than 3 risk factor or history of atherosclerotic disease Troponin: 1-3x normal limit HEART Score Total: 6
[2017-04-14] MEDS ORDERED: 0.9 % Sodium Chloride 500 ML ONE (21:39)
[2017-04-14] MEDS ORDERED: Naloxone 0.4 MG/ML INJ IVP PRN (22:44)
[2017-04-14] MEDS ORDERED: Nitroglycerin 0.4 MG TAB.SUBL SL PRN (22:45)
[2017-04-14] MEDS ORDERED: Famotidine 20 MG TABLET PO SCH (22:45)
[2017-04-14] MEDS ORDERED: traMADol 50 MG TABLET PO PRN ×2 (22:45→23:15)
--- NOTE | 2017-04-14 22:48 | Internal Med History&Physical ---
Date of Encounter: 04/14/17 Time of Encounter: 22:47 Assessment and Plan (1) Chest pain Current visit: Yes Status: Acute patint with a hx of CAD s/p mid LAD stent who had a cath in 12/2016 reporting patent stent with multiple vessel disease comes in with chest pain that has no fully responded to multiple does of nitro prompting introduction of nitro drip by the ER, we will et cardiology to weigh in regarding medications management( initiation of long acting nitrate and others), no need for any other interventions since he has had a recent cath that required no intervention, Qualifiers: Chest pain type: precordial pain Qualified Code(s): R07.2 - Precordial pain (2) Hyperkalemia Current visit: Yes Status: Acute this is from his ESRD compounded by missed HD session, we will follow BMP and have nephrology weigh in, if it continues to rise we will use potassium chelators (3) ESRD (end stage renal disease) on dialysis Current visit: Yes Status: Chronic (4) HTN (hypertension) Current visit: Yes Status: Chronic hypertensive on presentation, he may have missed his missed his medications, will resume them and monitor BP Qualifiers: Hypertension type: essential hypertension Qualified Code(s): I10 - Essential (primary) hypertension (5) Elevated troponin I level Current visit: Yes Status: Chronic patient has always had elevated troponin and this could be due to his ESRD impairing clearance, we will recheck with AM labs Internal Medicine - H&P: HPI Chief complaint: Chest pain Admitted From: Emergency Dept Plans for Post Hospital Care: Home History of present illness: Mr. Bray is a 51 year old male with a hx of CAD s/p stent and ESRD on HD MWF who was brought in today for chest pain. He reports that his chest pain started the night prior on 04/13/17 around 10-10:30pm with sharp pain whilst he was sleeping. The pain was substernal in location and tight in character and radiated to the left arm. He went back to sleep after taking one nitro, and was again woken up at 1am, took a nitro and went to sleep, later at 4:30am he awoke again with the pain and since then the pain has been constant. At its peak the pain was 10/10 in severity and associated with dyspnea, dyspnea on exertion and palpitations. He denied associated feeling of apprehension, diaphoresis or lightheadedness but admits to nausea that is his baseline. The pain was worse with exertion and improved with rest. He came to the ER because of this so he missed his regular dialysis. Of note he had a cardiac cath in 12/2016 which reported patent mid LAD stent with mild 3 vessel disease with cardiology recommendation for medical management. Past Med Surg Social Fam HX - Past Medical History Source: patient, old records reviewed Medical history: coronary artery disease, GERD, hypertension, myocardial infarction, renal disease, valvular heart disease, other (reports possible PAD but denies any hx of DVT) Psychiatric history: no psych history - Past Surgical History Surgical History: angioplasty/stent, other (LUE AVF creation) - Social History Smoking Status: Current every day smoker Packs per day: 1ppd, smoking since age 7 Smokeless Tobacco Status: No Alcohol use: none Drug use: none Current living situation: Home - Independent, With Family Activity Level: Independent ambulation - Family History Mother Hx Family Cardiac Disorders: Yes Father Hx Family Cardiac Disorders: Yes Hx Family Cancer: Yes - Additional Family History Additional family history: Both parents are , father had HTN, he had MO in his 40's, mother had HTN, DM and also had a stroke in her 60's, his 3 brothers all had CABG, one of the brothers has poorly controlled DM Internal Medicine - H&P: Meds Amlodipine Besylate 10 mg PO DAILY 12/15/16 [History] Aspirin 81 mg PO DAILY 12/15/16 [History] Carvedilol [Coreg] 25 mg PO BID 12/15/16 [History] Clopidogrel [Plavix] 75 mg PO DAILY 12/15/16 [History] Cyclobenzaprine [Flexeril] 10 mg PO HS 12/15/16 [History] Lisinopril [Zestril] 40 mg PO BID 12/15/16 [History] Nitroglycerin [Nitrostat] 0.4 mg SL AD PRN 12/15/16 [History] Omeprazole [PriLOSEC] 20 mg PO DAILY 12/15/16 [History] Ranitidine HCl [Zantac] 300 mg PO HS 12/15/16 [History] Sevelamer [Renvela] 800 mg PO TIDWM 12/15/16 [History] Tramadol HCl [Ultram] 50 mg PO Q6H PRN 12/15/16 [History] Atorvastatin Calcium [Lipitor] 20 mg PO DAILY 02/27/17 [History] Pentoxifylline [TRENtal] 400 mg PO DAILY 02/27/17 [History] Allergies No Known Allergies Allergy (Verified 04/12/17 10:51) All Systems PM: A 10-system review of systems was performed and is negative for pertinent findings except as documented above in the HPI. - Constitutional Vitals: Temp Pulse Resp BP Pulse Ox 97.9 F 88 16 148/78 94 04/14/17 20:50 04/14/17 20:50 04/14/17 20:50 04/14/17 20:50 04/14/17 20:50 GENERAL: Adult male, lying in bed in mild resp distress, Alert, HEENT: NC/AT, EOMI, PERRLA, anicteric sclera, normal conjunctiva, supple, clear nares, moist mucous membranes, RESP: Lungs are clear to auscultation bilaterally, good AE bilaterally, No crackles or wheeze CARDIO: Normal hearts sounds; S1 and 2, RRR with systolic murmur, no JVD, no ankle edema GI: Soft, full, no tenderness, no organomegaly felt, normal bowel sounds heard MUSCULOSKELETAL: grossly normal movements bilaterally, no deformities noted, LUE AVF with thrill and bruit NEUROLOGIC: CN 2-12 intact grossly. No gross motor/sensory deficit appreciated, PSYCHIATRY: AAO x 3. Mood is fair, SKIN: no skin rash or ulcers noted Internal Med - H&P Results - Labs CBC & Chem 7: 04/14/17 16:04 04/15/17 04:07 - EKG Data -: EKG Interpreted by Myself - Diagnostic Studies Chest x-ray Status: image reviewed by me
[2017-04-15 05:02] LABS: Calcium 9.3 mg/dL (8.6-10.8); Magnesium 1.7 mg/dL (1.6-2.6); Phosphorous 6.4 mg/dL (2.3-4.7); Potassium 5.2 mEq/L (3.5-4.5)
[2017-04-15] MEDS ORDERED: amLODIPine 5 MG TABLET PO SCH (09:00)
[2017-04-15] MEDS ORDERED: Lisinopril 20 MG TABLET PO SCH (09:00)
[2017-04-15] MEDS ORDERED: Aspirin 81 MG TAB.CHEW PO SCH (09:00)
[2017-04-15] MEDS ORDERED: 0.9 % Sodium Chloride 250 ML IVC PRN (09:52)
--- NOTE | 2017-04-15 09:54 | Cardiology Consult Note ---
Date of Encounter: 04/15/17 Time of Encounter: 09:52 Assessment and Plan (1) Chest pain Current Visit: Yes Status: Acute Chest pain with known CAD but fairly recent benign heart cath. Would recommend medical mgmt. Will add long acting nitrates. Qualifiers: Chest pain type: precordial pain Qualified Code(s): R07.2 - Precordial pain Discussion w patient/family: The assessment and plan as outlined above was discussed with the patient and/or family members who expressed understanding and agreement. All questions were answered. Thank you for involving us in the care of your patient. Please call with any questions. History of Present Illness Consult date: 04/15/17 Requesting physician: Shay Zimmerman Consult reason: Chest pain Chief complaint: Chest pain History of present illness: Mr. Bray is a 51 year old male with known CAD presents with chest pain. Pain has some typical and atypical features with some prolonged episodes but negative cardiac enzymes. Last cath just 4 months ago showed patent stent and no significant obstructive disease. Past Med Surg Social Fam HX - Past Medical History Medical history: coronary artery disease, GERD, hypertension, myocardial infarction, renal disease, valvular heart disease, other (reports possible PAD but denies any hx of DVT) Psychiatric history: no psych history - Past Surgical History Surgical History: angioplasty/stent, other (LUE AVF creation) - Social History Smoking Status: Current every day smoker Packs per day: 1ppd, smoking since age 7 Smokeless Tobacco Status: No Alcohol use: none Drug use: none - Family History Mother Hx Family Cardiac Disorders: Yes Father Hx Family Cardiac Disorders: Yes Hx Family Cancer: Yes Medications and Allergies Amlodipine Besylate 10 mg PO DAILY 12/15/16 [History] Aspirin 81 mg PO DAILY 12/15/16 [History] Carvedilol [Coreg] 25 mg PO BID 12/15/16 [History] Clopidogrel [Plavix] 75 mg PO DAILY 12/15/16 [History] Cyclobenzaprine [Flexeril] 10 mg PO HS 12/15/16 [History] Lisinopril [Zestril] 40 mg PO BID 12/15/16 [History] Nitroglycerin [Nitrostat] 0.4 mg SL AD PRN 12/15/16 [History] Omeprazole [PriLOSEC] 20 mg PO DAILY 12/15/16 [History] Ranitidine HCl [Zantac] 300 mg PO HS 12/15/16 [History] Sevelamer [Renvela] 800 mg PO TIDWM 12/15/16 [History] Tramadol HCl [Ultram] 50 mg PO Q6H PRN 12/15/16 [History] Atorvastatin Calcium [Lipitor] 20 mg PO DAILY 02/27/17 [History] Pentoxifylline [TRENtal] 400 mg PO DAILY 02/27/17 [History] Allergies No Known Allergies Allergy (Verified 04/12/17 10:51) All Systems Review: A 10-system review of systems was performed and is negative for pertinent findings except as documented above in the HPI. Physical Examination Vital Signs, Last 4 Hours Temp Pulse Resp BP Pulse Ox 04/15/17 07:19 97.9 F 79 16 152/84 94 General: Conversant, No Apparent Distress HEENT: Atraumatic, Normocephaly, Mucus Membranes Moist Neck: No JVD, Normal carotid pulses Cardiac: Reg Rate and Rhythm, Normal S1 and S2, No Murmur Lungs: Normal Breath Sounds, No Wheeze, Rales, Rhonchi Neuro: Alert and responsive, No focal deficits noted Abdomen: Soft, Non-Tender Skin: No rashes noted on visualized skin Extremities: No Clubbing, No Cyanosis, No Edema, Normal Pulses, Other (dialysis fistulas noted. ) Results 04/14/17 16:04 04/15/17 04:07 Lab Results 04/15/17 04/15/17 04:07 04:07 Sodium 136 Potassium 5.2 H Chloride 107 Carbon Dioxide 20 BUN 46 H Creatinine 8.31 H Glucose 105 H Calcium 9.3 Magnesium 1.7 Troponin I 0.05 H* - EKG Interpretation EKG results cardiology: other (No acute ST or T wave changes) Consult Discharge Plan - Plan Referrals: Estrada Mueller MD [Primary Care Provider] -
[2017-04-15] MEDS ORDERED: 0.9 % Sodium Chloride 1,000 ML PRIME SCH (10:00)
--- NOTE | 2017-04-15 12:17 | Nephrology Consult Note ---
Date of Encounter: 04/15/17 Time of Encounter: 12:14 Assessment and Plan (1) ESRD (end stage renal disease) on dialysis Current Visit: Yes Status: Chronic Patient currently receiving dialysis now. Plan for HD again on Monday Continue renal diet Avoid nephrotoxins (2) Hyperphosphatemia Current Visit: Yes Status: Acute Patient non-compliant with diet despite repeated education Continue Renvela and renal diet (3) Chest pain Current Visit: Yes Status: Acute per cardiology team Qualifiers: Chest pain type: precordial pain Qualified Code(s): R07.2 - Precordial pain History of Present Illness - Reason for Consult Consult date: 04/15/17 - Chief Complaint chest pain, ESRD on dialysis - History of Present Illness Mr. Bray is a 51 year old male well known to our practice with a hx of CAD s/ p stent and ESRD on HD MWF who was brought in today for chest pain. He reports that his chest pain started the night prior on 04/13/17. In the outpatient dialysis unit patient has c/o chest pain for several months but has not followed up with elementary school tutor as advised. Has had a lot of stress in life recently. Patient did not go to dialysis yesterday; has been missing treatments several times a month over last few months. Past Med Surg Social Fam HX - Past Medical History Medical history: coronary artery disease, GERD, hypertension, myocardial infarction, renal disease, valvular heart disease, other (reports possible PAD but denies any hx of DVT) Psychiatric history: no psych history - Past Surgical History Surgical History: angioplasty/stent, other (LUE AVF creation) - Social History Smoking Status: Current every day smoker Packs per day: 1ppd, smoking since age 7 Smokeless Tobacco Status: No Alcohol use: none Drug use: none - Family History Mother Hx Family Cardiac Disorders: Yes Father Hx Family Cardiac Disorders: Yes Hx Family Cancer: Yes Medications and Allergies Amlodipine Besylate 10 mg PO DAILY 12/15/16 [History] Aspirin 81 mg PO DAILY 12/15/16 [History] Carvedilol [Coreg] 25 mg PO BID 12/15/16 [History] Clopidogrel [Plavix] 75 mg PO DAILY 12/15/16 [History] Cyclobenzaprine [Flexeril] 10 mg PO HS 12/15/16 [History] Lisinopril [Zestril] 40 mg PO BID 12/15/16 [History] Nitroglycerin [Nitrostat] 0.4 mg SL AD PRN 12/15/16 [History] Omeprazole [PriLOSEC] 20 mg PO DAILY 12/15/16 [History] Ranitidine HCl [Zantac] 300 mg PO HS 12/15/16 [History] Sevelamer [Renvela] 800 mg PO TIDWM 12/15/16 [History] Tramadol HCl [Ultram] 50 mg PO Q6H PRN 12/15/16 [History] Atorvastatin Calcium [Lipitor] 20 mg PO DAILY 02/27/17 [History] Pentoxifylline [TRENtal] 400 mg PO DAILY 02/27/17 [History] Allergies No Known Allergies Allergy (Verified 04/12/17 10:51) Review of Systems All Systems: reviewed and no additional remarkable complaints except as stated Constitutional: no chills, no fatigue, no fever(s) Nose, mouth and throat: no dizziness Cardiovascular: chest pain, chest pain at rest, no dyspnea, no edema Respiratory: no cough, no dyspnea on exertion Gastrointestinal: no diarrhea, no vomiting Neurological: no behavioral changes Exam - Vital Signs Vital signs: Initial Vital Signs Temp Pulse Resp BP Pulse Ox 97.3 F L 82 18 165/93 96 04/14/17 15:50 04/14/17 15:50 04/14/17 15:50 04/14/17 15:50 04/14/17 15:50 Vital Signs - Last 8 Hours Temp Pulse Resp BP Pulse Ox 04/15/17 11:25 149/81 04/15/17 11:10 149/76 04/15/17 10:55 147/78 04/15/17 10:40 98.0 F 18 153/86 04/15/17 07:19 97.9 F 79 16 152/84 94 04/15/17 04:22 98.7 F 75 16 156/76 97 Intake and Output 04/14/17 04/15/17 04/15/17 23:59 07:59 15:59 Intake Total 720 / 720 Output Total 600 / 600 Balance 120 / 120 Intake: Oral 120 / 120 Intake, Rinseback and 600 / 600 Flushes Output: Urine 600 / 600 Other: Meal Breakfast Percent of Meal Consumed 25% Weight 67.222 kg Hemodialysis Net Fluid 151 Removed (mL) - General Appearance General appearance: well-developed, well-nourished EENT: ATNC, mucous membranes moist, hearing intact, vision intact Neck: supple Respiratory: clear Cardiology: no edema, normal S1, normal S2 - Dialysis Access Dialysis Vascular Access: Arteriovenous Fistula Gastrointestinal: no tenderness, no guarding Integumentary: warm and dry Neurologic: alert and oriented x3 Psychiatric: mood/affect appropriate, cooperative Results - Lab Results 04/14/17 16:04 04/15/17 04:07 Most recent lab results Calcium 9.3 mg/dL (8.6-10.8) 04/15/17 04:07 Phosphorus 6.4 mg/dL (2.3-4.7) H 04/15/17 04:07 Magnesium 1.7 mg/dL (1.6-2.6) 04/15/17 04:07 Consult Discharge Plan - Plan Referrals: Estrada Mueller MD [Primary Care Provider] - (web request sent on 04/15/17)
[2017-04-15 13:04] LABS: Hepatitis B Surface Antigen Nonreactive (Nonreactive)
[2017-04-15] MEDS ORDERED: *HR* Heparin 5,000 UNIT/ML VIAL SQ SCH (14:00)
[2017-04-15] MEDS ORDERED: 0.9 % Sodium Chloride 2,000 ML ONE (14:20)
[2017-04-15 14:28] VITALS: BP 162/85
--- NOTE | 2017-04-15 15:18 | Discharge Summary ---
Date of Encounter: 04/15/17 Time of Encounter: 15:10 - Discharge Diagnosis (1) Chest pain Priority: Primary Status: Resolved Qualifiers: Chest pain type: precordial pain Qualified Code(s): R07.2 - Precordial pain (2) Elevated troponin I level Priority: Primary Status: Resolved (3) CAD (coronary artery disease) Priority: Secondary Status: Chronic Qualifiers: Coronary Disease-Associated Artery/Lesion type: [place] artery [place] vs. transplanted heart: [place] heart Associated angina: with unstable angina Qualified Code(s): I25.110 - Atherosclerotic heart disease of [place] coronary artery with unstable angina pectoris (4) ESRD (end stage renal disease) Priority: Secondary Status: Chronic (5) HTN (hypertension) Priority: Secondary Status: Chronic Qualifiers: Hypertension type: essential hypertension Qualified Code(s): I10 - Essential (primary) hypertension (6) Tobacco dependence Priority: Secondary Status: Acute - Discharge Medications Prescriptions: Isosorbide MONOnitrate (24 HR) [Imdur] 30 mg PO DAILY #30 Home Medications: Amlodipine Besylate 10 mg PO DAILY 12/15/16 [History] Aspirin 81 mg PO DAILY 12/15/16 [History] Carvedilol [Coreg] 25 mg PO BID 12/15/16 [History] Clopidogrel [Plavix] 75 mg PO DAILY 12/15/16 [History] Cyclobenzaprine [Flexeril] 10 mg PO HS 12/15/16 [History] Lisinopril [Zestril] 40 mg PO BID 12/15/16 [History] Nitroglycerin [Nitrostat] 0.4 mg SL AD PRN 12/15/16 [History] Omeprazole [PriLOSEC] 20 mg PO DAILY 12/15/16 [History] Ranitidine HCl [Zantac] 300 mg PO HS 12/15/16 [History] Sevelamer [Renvela] 800 mg PO TIDWM 12/15/16 [History] Tramadol HCl [Ultram] 50 mg PO Q6H PRN 12/15/16 [History] Atorvastatin Calcium [Lipitor] 20 mg PO DAILY 02/27/17 [History] Pentoxifylline [TRENtal] 400 mg PO DAILY 02/27/17 [History] Isosorbide MONOnitrate (24 HR) [Imdur] 30 mg PO DAILY #30 04/15/17 [Rx] Nicotine Patch [Nicoderm] 21 mg TD DAILY #30 patch.[email or web address] 04/15/17 [Rx] Allergies/Adverse Reactions: Allergies No Known Allergies Allergy (Verified 04/12/17 10:51) Date of admission: 04/14/17 18:18 Primary care physician: Estrada Mueller MD Consults: 04/14/17 22:43 Consult to Cardiology [CONS] Routine Comment: Consulting Provider: Cardiology Vilma Reason for Consult: Pls assist us in managing this pt with known CAD had a recent cath in 12/2016 for medical mgt, thanks Call Completed: No 04/15/17 10:00 Consult to Dialysis [CONS] ONCE - Patient Status Disposition: Home, Self-Care Condition: Good Overall status at discharge: patient is back to baseline - Discharge Instructions Follow Up With: Estrada Mueller MD [Primary Care Provider] - (web request sent on 04/15/17) Renny Loo MD [Partnered Physician] - - Diet and Activity Activity: increase activity as tolerated Diet: low salt diet Hospital course: Mr. Bray is a 51 year old male with known PMH of CAD s/p stent with recent benign LHC on 12/15/2016, HTN, HLD, chronic tobacco dependence and ESRD on HD // , who missed HD yesterday admitted with acute chest pain. Pt had slightly elevated troponin at 0.04, however he did not have any acute EKG changes. Pt chest pain resolved with Nitro. He was seen by Nuclear Cardiology Technologist Dr. Loo who recommend to start him on long acting Nitro Imdur 30mg daily. Since this morning pt remained CP free and tolerating PO intake well. He just came back from HD today. Student Finance Advisor did evaluated him and recommend to continue HD as scheduled from Monday. Regarding his tobacco smoking , I did health counselor the patient to quit smoking , also provided him [id number] number. Pt was sent home on nicotine patches too. Pt's family also a bed side, answered all their questions and concerns. - Time Spent with Patient Total time spent providing and/or coordinating discharge services: - Constitutional Vitals: Temp Pulse Resp BP Pulse Ox 98.0 F 79 18 162/85 94 04/15/17 10:40 04/15/17 07:19 04/15/17 10:40 04/15/17 13:40 04/15/17 07:19 General appearance: Present: A&O X 3, no acute distress, answers questions appropriately - Head Head exam: Present: atraumatic, normal inspection - Neck Neck exam general surgery: Present: supple. Absent: lymphadenopathy - Respiratory Respiratory exam: Present: decreased breath sounds, wheezes. Absent: respiratory distress, rhonchi - Cardiovascular Cardiovascular exam: Present: RRR, +S1, +S2. Absent: systolic murmur - GI/Abdominal GI/Abdominal exam: Present: soft. Absent: rebound, rigid, tenderness - Extremities Exam Extremities exam: Absent: calf tenderness, pedal edema, tenderness - Psychiatric Psychiatric exam: Present: normal affect, normal mood
[2017-04-15] MEDS ORDERED: Famotidine 20 MG TABLET PO SCH (21:00)
[2017-04-16] MEDS ORDERED: Isosorbide MONOnitrate (24 HR) 30 MG TAB.ER.24H PO SCH (09:00)
[2017-04-17 13:29] LABS: Hepatitis B Surface Antibody 0.68 mIU/mL
--- NOTE | 2017-04-17 15:15 | Electrocardiograph Report ---
[place] [id number] Test Date: 2017-04-14 Pat Name: Connor Bray Department: 104 Room: [facility] Gender: M Door To Door Selling Agent: MSC : [id number] Requested By: Javier Garcia Order Number: [id number] Reading MD: Shanna Loo Measurements Intervals [place] Rate: 81 P: 52 WV: 168 QRS: 62 QRSD: 84 T: 238 QT: 362 QTc: 400 Interpretive Statements SINUS RHYTHM LEFT VENTRICULAR HYPERTROPHY AND ST-T CHANGE Electronically Signed On 04-16-2017 22:12:11 EDT by Shanna Loo
== END 2017-04-15 16:04 | disposition home or self-care (01) ==
LOC: EMEROO 15:35 → 2ANU 15:35
PROVIDERS: ADMIT Internal Medicine; ATTEND Internal Medicine